=== PATIENT | male | born 1950 | race Caucasian/White ===

== ENCOUNTER → 2022-01-01 | Outpatient (CLI) | payer MEDICARE | LOC: KOH-I 10:00 → EDSEX 10:05 → KOH-I 10:05 | DX: J32.9 Chronic sinusitis, unspecified (principal) | CPT/HCPCS: 70486 ==

== ENCOUNTER → 2022-03-05 | Outpatient (CLI) | payer MEDICARE | LOC: KOH-I 13:37 | DX: M79.672 Pain in left foot (principal); M19.072 Primary osteoarthritis, left ankle and foot | CPT/HCPCS: 73630 ==